=== PATIENT | female | born 1970 | race Caucasian/White ===

== ENCOUNTER 2017-02-07 20:33 | Emergency (ER) | payer MEDICAID ==
[~2017-02-07] VITALS: Ht 167.6 cm; Wt 81.6 kg
[2017-02-07 21:20] VITALS: BP 161/95
[2017-02-07] MEDS ORDERED: LIDOCAINE 1% HCL (LOCAL ANESTH.) INJ 20ML MDV IJ ONE (21:45)
[2017-02-07] MEDS ORDERED: LORazepam 0.5 MG TAB PO ONE (22:30)
[2017-02-07] MEDS ORDERED: NEOMYCIN-BACITRACIN-POLYM UNITDOSE PKG TOP OINT TOP ONE (23:15)
[2017-02-07] MEDS ORDERED: TETANUS-DIPTH-ACEL PERTUSSIS 0.5ML SYRG IM ONE (23:15)
== END 2017-02-07 23:30 | disposition home or self-care (01) ==
LOC: ER 20:36
DX: S51.012A Laceration without foreign body of left elbow, initial encounter (principal); W54.0XXA Bitten by dog, initial encounter; Y93.01 Activity, walking, marching and hiking; Y99.8 Other external cause status; E07.9 Disorder of thyroid, unspecified; Y92.89 Other specified places as the place of occurrence of the external cause
CPT/HCPCS: 12004; 73070; 90471; 90715; 99284; J2001

== ENCOUNTER 2020-02-23 11:33 | Emergency (ER) | payer MEDICAID ==
[~2020-02-23] VITALS: Ht 167.6 cm; Wt 93.0 kg
[2020-02-23 12:50] VITALS: BP 151/91
== END 2020-02-23 13:55 | disposition home or self-care (01) ==
LOC: ER 11:33
DX: J06.9 Acute upper respiratory infection, unspecified (principal); Z90.49 Acquired absence of other specified parts of digestive tract; Z90.710 Acquired absence of both cervix and uterus
CPT/HCPCS: 71046; 87804